=== PATIENT | male | born 1995 | race Caucasian/White ===

== ENCOUNTER 2023-09-24 02:00 | Observation (INO) | payer OTHER ==
[~2023-09-24] VITALS: Ht 170.2 cm; Wt 68.4 kg
[2023-09-24 02:45] LABS: BASO # 0.1 10^3/uL (0.0-0.2); BASO % 0.8 % (0.0-1.0); EOS # 0.2 10^3/uL (0.0-0.5); EOS % 2.1 % (0.0-3.0); HEMOGLOBIN 13.9 g/dl (13.5-17.5); LYMPH # 3.3 10^3/uL (1.5-5.0); LYMPH % 44.1 % (24.0-44.0); MEAN CORPUSCULAR HEMOGLOBIN 29.4 pg (27.0-33.0); MEAN CORPUSCULAR HGB CONC 34.8 g/dl (32.0-36.5); MEAN CORPUSCULAR VOLUME 84.6 fl (80.0-96.0); MONO # 0.6 10^3/uL (0.0-0.8); MONO % 7.7 % (2.0-8.0); NEUTROPHILS # 3.4 10^3/uL (1.5-8.5); NEUTROPHILS % 44.8 % (36.0-66.0); PLATELET COUNT, AUTOMATED 284 10^3/uL (150-450); RED BLOOD COUNT 4.73 10^6/uL (4.30-6.10); WHITE BLOOD COUNT 7.5 10^3/uL (4.0-10.0)
[2023-09-24 03:13] LABS: BLOOD UREA NITROGEN 15 MG/DL (9-23); CALCIUM LEVEL 8.1 MG/DL (8.5-10.1); CARBON DIOXIDE LEVEL 26 MMOL/L (20-31); CHLORIDE LEVEL 107 MMOL/L (98-107); CREATININE FOR GFR 0.87 MG/DL (0.70-1.30); GLOMERULAR FILTRATION RATE > 60.0 (>60); GLUCOSE, FASTING 104 MG/DL (60-100); POTASSIUM SERUM 3.7 MMOL/L (3.5-5.1); SODIUM LEVEL 139 MMOL/L (136-145)
[2023-09-24 03:32] LABS: FREE T4 1.16 NG/DL (0.89-1.76); THYROID STIMULATING HORMONE 3.608 uIU/ML (0.55-4.78)
[2023-09-24 03:39] LABS: CPK CREATINE PHOSPHOKINASE 166 U/L (46-171)
[2023-09-24 04:26] LABS: CK-MB VALUE MASS < 1.0 NG/ML (<3.6)
[2023-09-24 04:27] LABS: CPK CREATINE PHOSPHOKINASE 148 U/L (46-171); MB/CK RELATIVE INDEX 0.67 (< OR =4)
[2023-09-24 04:50] VITALS: BP 112/62
[2023-09-24] MEDS: METOPROLOL TART 25 MG TABLET PO ONE (04:50)
[2023-09-24 06:40] VITALS: BP 111/54; TEMP 98.1; O2SAT 96
[2023-09-24] MEDS ORDERED: HOME MED LIST COMPLETE! XX SCH (08:15)
[2023-09-24] MEDS: ASPIRIN 81MG CHEW TABLET PO SCH (10:49)
[2023-09-24 14:00] VITALS: BP 127/75; TEMP 97.7; O2SAT 97
[2023-09-24] MEDS ORDERED: ASPI81CH8 PO ×2 (14:28→15:05)
[2023-09-24] MEDS ORDERED: METO1TAB87 PO ×2 (14:28→15:05)
[2023-09-24] MEDS ORDERED: METOPROLOL TART 25 MG TABLET PO SCH (18:00)
== END 2023-09-24 15:46 | disposition home or self-care (01) ==
LOC: M ED 02:00 → M ED INP 02:01 → ENRESERV 05:54 → M MSPAV 06:27
PROVIDERS: ADMIT Internal Medicine; ATTEND Internal Medicine
DX: I48.91 Unspecified atrial fibrillation (principal); R11.0 Nausea; R07.89 Other chest pain; Z82.41 Family history of sudden cardiac death; Z82.49 Family history of ischemic heart disease and other diseases of the circulatory system

== ENCOUNTER 2024-03-13 14:04 | Emergency (ER) | payer OTHER ==
[~2024-03-13] VITALS: Ht 165.1 cm; Wt 66.2 kg
[~2024-03-13 14:04] MED LIST: ASPI81CH8 PO; METO1TAB87 PO
[2024-03-13 14:43] LABS: BASO # 0.1 10^3/uL (0.0-0.2); BASO % 0.5 % (0.0-1.0); EOS % 0.3 % (0.0-3.0); HEMATOCRIT 43.8 % (42.0-52.0); LYMPH # 2.2 10^3/uL (1.5-5.0); LYMPH % 18.2 % (24.0-44.0); MEAN CORPUSCULAR HEMOGLOBIN 29.1 pg (27.0-33.0); MEAN CORPUSCULAR HGB CONC 34.2 g/dl (32.0-36.5); MEAN CORPUSCULAR VOLUME 84.9 fl (80.0-96.0); MONO # 0.6 10^3/uL (0.0-0.8); MONO % 4.8 % (2.0-8.0); NEUTROPHILS # 9.1 10^3/uL (1.5-8.5); NEUTROPHILS % 75.6 % (36.0-66.0); PLATELET COUNT, AUTOMATED 374 10^3/uL (150-450); RED BLOOD COUNT 5.16 10^6/uL (4.30-6.10)
[2024-03-13] MEDS: NS 500 ML IV ONE (15:02)
[2024-03-13] MEDS: METOCLOPRAMIDE INJ 10MG/2ML VIAL IV ONE (15:03)
[2024-03-13 15:14] LABS: LIPASE 33 U/L (12-53)
[2024-03-13 15:16] LABS: ALBUMIN 4.6 G/DL (3.2-5.2); ALKALINE PHOSPHATASE 88 U/L (46-116); ALT/SGPT 41 U/L (7.0-40); AST/SGOT 24 U/L (<34); BILIRUBIN,DIRECT 0.2 MG/DL (<0.4); BILIRUBIN,TOTAL 0.6 MG/DL (0.3-1.2); BLOOD UREA NITROGEN 13 MG/DL (9-23); CALCIUM LEVEL 9.9 MG/DL (8.5-10.1); CARBON DIOXIDE LEVEL 28 MMOL/L (20-31); CHLORIDE LEVEL 101 MMOL/L (98-107); CREATININE FOR GFR 0.88 MG/DL (0.70-1.30); GLOMERULAR FILTRATION RATE > 60.0 (>60); GLUCOSE, FASTING 85 MG/DL (60-100); POTASSIUM SERUM 4.4 MMOL/L (3.5-5.1); SODIUM LEVEL 136 MMOL/L (136-145); TOTAL PROTEIN 8.3 G/DL (5.7-8.2)
[2024-03-13] MEDS: OXAZEPAM 15MG CAP PO ONE (15:49)
[2024-03-13] MEDS: ACETAMINOPHEN 325 MG TAB PO ONE (15:49)
[2024-03-13] MEDS ORDERED: OXAZ30CA2 PO (17:44)
[2024-03-13 17:45] VITALS: BP 102/57; TEMP 97.4; O2SAT 96
[2024-03-13] MEDS ORDERED: ONDA-282 PO (17:45)
== END 2024-03-13 18:04 | disposition home or self-care (01) ==
LOC: M ED 14:04
DX: R51.9 Headache, unspecified (principal); R11.10 Vomiting, unspecified; I48.91 Unspecified atrial fibrillation; F10.10 Alcohol abuse, uncomplicated; Z79.1 Long term (current) use of non-steroidal anti-inflammatories (NSAID); Z79.899 Other long term (current) drug therapy
CPT/HCPCS: 70450; 80047; 80048; 80076; 83690; 85025; 87486; 87581; 87633; 87798; 93041; 96374; 99284; J2765

== ENCOUNTER 2024-10-10 04:18 | Emergency (ER) | payer OTHER ==
[~2024-10-10] VITALS: Ht 167.6 cm; Wt 69.0 kg
[~2024-10-10 04:18] MED LIST changes: +ONDA-282 PO; +OXAZ30CA2 PO
[2024-10-10 04:39] LABS: BASO % 0.8 % (0.0-1.0); EOS # 0.1 10^3/uL (0.0-0.5); EOS % 2.5 % (0.0-3.0); HEMATOCRIT 38.8 % (42.0-52.0); HEMOGLOBIN 13.3 g/dl (13.5-17.5); LYMPH # 1.5 10^3/uL (1.5-5.0); LYMPH % 28.6 % (24.0-44.0); MEAN CORPUSCULAR HEMOGLOBIN 28.2 pg (27.0-33.0); MEAN CORPUSCULAR HGB CONC 34.3 g/dl (32.0-36.5); MEAN CORPUSCULAR VOLUME 82.4 fl (80.0-96.0); MONO # 0.4 10^3/uL (0.0-0.8); MONO % 7.6 % (2.0-8.0); NEUTROPHILS # 3.2 10^3/uL (1.5-8.5); NEUTROPHILS % 60.1 % (36.0-66.0); PLATELET COUNT, AUTOMATED 290 10^3/uL (150-450); RED BLOOD COUNT 4.71 10^6/uL (4.30-6.10); WHITE BLOOD COUNT 5.3 10^3/uL (4.0-10.0)
[2024-10-10 05:07] LABS: BLOOD UREA NITROGEN 10 MG/DL (9-23); CALCIUM LEVEL 8.9 MG/DL (8.5-10.1); CARBON DIOXIDE LEVEL 25 MMOL/L (20-31); CHLORIDE LEVEL 105 MMOL/L (98-107); CK-MB VALUE MASS < 1.0 NG/ML (<3.6); CPK CREATINE PHOSPHOKINASE 94 U/L (46-171); GLOMERULAR FILTRATION RATE > 90.0 (>60); GLUCOSE, FASTING 109 MG/DL (60-100); MB/CK RELATIVE INDEX 1.06 (< OR =4); POTASSIUM SERUM 3.5 MMOL/L (3.5-5.1); SODIUM LEVEL 142 MMOL/L (136-145)
[2024-10-10 06:24] LABS: CK-MB VALUE MASS < 1.0 NG/ML (<3.6)
[2024-10-10 06:25] LABS: CPK CREATINE PHOSPHOKINASE 93 U/L (46-171); MB/CK RELATIVE INDEX 1.07 (< OR =4)
[2024-10-10 09:53] VITALS: BP 118/71; TEMP 98.8; O2SAT 97
== END 2024-10-10 10:13 | disposition home or self-care (01) ==
LOC: M ED 04:18
DX: U07.1 COVID-19 (principal); R00.2 Palpitations; I48.91 Unspecified atrial fibrillation; B34.9 Viral infection, unspecified; F10.10 Alcohol abuse, uncomplicated; Z79.1 Long term (current) use of non-steroidal anti-inflammatories (NSAID); Z79.899 Other long term (current) drug therapy